=== PATIENT | female | born 1945 | race Hispanic/Latino ===

== ENCOUNTER 2018-06-21 15:58 | Emergency (ER) | payer OTHER ==
[~2018-06-21] VITALS: Ht 160 cm; Wt 77.1 kg
[~2018-06-21 15:58] MED LIST: BUPROPION XL150 MG PO; DESONIDE15 GM TP; DIOVAN HCT 80-1 EACH PO; GLIPIZIDE XL5 MG PO; LINZESS PO; METFORMIN HCL500 MG PO; OMEPRAZOLE20 MG PO; VENTOLIN HFA18 GM INH
--- OUTSIDE RECORDS SUMMARY | 2018-06-21 16:01 | XMS REPORT ---
Author Author [facility] Address Unknown Phone Unavailable Care Team Providers Care Cloth Bin Packer Name Role Phone Unavailable Unavailable Payers Payer Name Policy Type Policy Number Effective Date Expiration Date Problems This patient has no known problems. Allergies, Adverse Reactions, Alerts Allergy Name Allergy Type Status Severity Reaction(s) Onset Date Inactive Date Treating Clinician Comments Penicillins DA Active SV 2014-04-08 00:00:00 lisinopril DA Active SV 2014-04-08 00:00:00 latex DA Active SV 2014-04-08 00:00:00 Medications This patient has no known medications.
--- OUTSIDE RECORDS SUMMARY | 2018-06-21 16:01 | XMS REPORT | Clinical Summary ---
Author Author [facility] Address Unknown Phone Unavailable Care Team Providers Care Receiving Barn Custodian Name Role Phone Asked, No Pcp PCP Unavailable Allergies Comments Active Allergy Reactions Severity Noted Date Latex Rash Low 12/11/2016 cough Lisinopril Other (See 12/11/2016 Comments) Penicillins Rash Low 12/11/2016 Medications End Date Status Medication Sig Dispensed Refills Start Date Active metFORMIN (GLUCOPHAGE) Take 1,000 mg 0 1,000 mg tablet by mouth 2 (two) times a day with meals. Active valsartan-hydrochlorothia Take 1 tablet 0 zide (DIOVAN-HCT) by mouth 160-12.5 mg per tablet daily. Active glipiZIDE (GLUCOTROL) 5 Take 5 mg by 0 MG tablet mouth 2 (two) times a day before meals. Active omeprazole (PriLOSEC) 40 Take 40 mg by 0 MG capsule mouth daily. Active aspirin (ECOTRIN) 81 MG Take 81 mg by 0 enteric coated tablet mouth daily. Active gabapentin (NEURONTIN) Take 400 mg 0 400 mg capsule by mouth nightly. Active metroNIDAZOLE (METROGEL) Apply 0 0.75 % gel topically 2 (two) times a day. Active triamcinolone (KENALOG) Apply 0 0.1 % ointment topically 2 (two) times a day. Active albuterol (PROAIR Inhale 2 0 HFA,PROVENTIL puffs every 6 HFA,VENTOLIN HFA) 90 (six) hours mcg/actuation inhaler as needed for wheezing. Active buPROPion XL (WELLBUTRIN daily. 6 XL) 150 MG 24 hr tablet 7 Active OMEGA-3S/DHA/EPA/FISH OIL Take by 0 (OMEGA 3 ORAL) mouth. Active CYANOCOBALAMIN, VITAMIN Take by 0 B-12, (VITAMIN B-12 ORAL) mouth. Active VITAMIN E, DL,TOCOPHERYL Take by 0 ACET, (VITAMIN E, DL, mouth. ACETATE, ORAL) Active BIOTIN ORAL Take by 0 mouth. Active Problems Problem Noted Date Cystocele, midline 12/24/2016 Midline cystocele 12/23/2016 Social History Date Tobacco Use Types Packs/Day Years Used Current Every Day Smoker Cigarettes 0.25 57 Smokeless Tobacco: Never Used Tobacco Cessation: Ready to Quit: Yes; Counseling Given: Yes Alcohol Use Drinks/Week oz/Week Comments No Sex Assigned at Date Recorded Not on file Industry Job Start Date Occupation Not on file Not on file Not on file Travel End Travel History Travel Start No recent travel history available. Last Filed Vital Signs Not on file Plan of Treatment Not on file Implants Device Identifier Shelf Expiration Date Model / Serial / Lot Implanted Type Area Manufactur er 03/28/2019 [id number] / [id number] / [id number] Matrix Xenform 8x12cm Soft-Tissue Surgical N/A: N/A [facility] [place] Rpr - [id number] Bone UROLOGY Implanted: 12/24/2016 (Quantity not Cement on file) [id number] / / Device Sut Cptrng Capio - [id number] Surgical N/A: N/A [employer] Implanted: 12/24/2016 (Quantity not Implants; SCIENTIFIC on file) Expanders; MARGARET Extenders; Surgical Wires Results Not on fileafter 06/20/2017 Insurance Payer Benefit Subscriber ID Type Phone Address Plan / Group TEXANPLUS TEXANPLUS xxxxxxxxx [facility] MEDICARE AARP xxxxxxxxx HMO MEDICARE COMPLETE [facility] Advance Directives Patient has advance care planning documents on file. For more information, nikki montgomery contact: Henry Arroyo [address] [place] [address]
== END 2018-06-21 19:36 | disposition short-term general hospital (02) ==
LOC: ER 15:58
DX: M54.9 Dorsalgia, unspecified (principal)
CPT/HCPCS: 93005

== ENCOUNTER → 2018-11-08 | Day surgery (SDC) | payer MEDICARE ==
[2018-11-03 10:24] LABS: BASOPHILS % 0.3 % (0.0-1.0); EOSINOPHILS % 0.6 % (0.0-6.0); HEMOGLOBIN 12.2 g/dL (12.0-16.0); LYMPHOCYTES # (AUTO) 1.6 (1.0-3.2); LYMPHOCYTES % 25.7 % (18.0-39.1); MEAN CORPUSCULAR HEMOGLOBIN 28.8 pg (28-32); MEAN CORPUSCULAR VOLUME 87.5 fL (81-99); MONOCYTES # (AUTO) 0.4 (0.2-0.8); MONOCYTES % 6.5 % (4.4-11.3); NEUTROPHILS # (AUTO) 4.2 (2.1-6.9); NEUTROPHILS % 66.6 % (38.7-80.0); PLATELET COUNT 196 x10e3/uL (140-360); RED BLOOD COUNT 4.23 x10e6/uL (3.6-5.1); RED CELL DISTRIBUTION WIDTH 16.2 % (11.7-14.4)
[~2018-11-08] MED LIST changes: +ACETAMINOPHEN/CODEINE 300MG - 30MG TAB ONE; +FENTANYL CITRATE/PF 100MCG/2 ML INJ ONE; +LOVASTATIN40 MG PO; +PROPOFOL IV EMULSION 10 MG/ML 50 ML VIAL ONE
--- OUTSIDE RECORDS SUMMARY | 2018-11-08 06:00 | XMS REPORT | Clinical Summary ---
Author Author [facility] Address Unknown Phone Unavailable Care Team Providers Care Resistance Machine Welder Setter Name Role Phone Asked, No Pcp PCP [...] Lot Implanted Type Area Manufactur er 03/28/2019 [id number] / [id number] / [id number] Matrix Xenform 8x12cm Soft-Tissue Surgical N/A: N/A [facility] [place] Rpr - [id number] Bone UROLOGY Implanted: 12/24/2016 (Quantity not Cement on file) [id number] / / Device Sut Cptrng Capio - [id number] Surgical N/A: N/A [employer] Implanted: 12/24/2016 (Quantity not Implants; SCIENTIFIC on file) Expanders; MARGARET Extenders; Surgical Wires Results Not on fileafter 11/07/2017 Insurance Type Payer Benefit Subscriber ID Effective Phone Address Plan / Dates Group HMO TEXANPLUS TEXANPLUS xxxxxxxxx 2016-P MCR resent HMO [facility] MEDICARE AARP xxxxxxxxx 2016-P MEDICARE resent COMPLETE [facility] Advance Directives Patient has advance care planning documents on file. For more information, nikki montgomery contact: Henry Arroyo [address] [address]
[2018-11-08 09:40] VITALS: BP 139/63
== END | disposition home or self-care (01) ==
LOC: OR 05:51
PROVIDERS: ATTEND Internal Medicine Gastroenterology
DX: K29.50 Unspecified chronic gastritis without bleeding (principal); K20.9 Esophagitis, unspecified; K21.9 Gastro-esophageal reflux disease without esophagitis; K44.9 Diaphragmatic hernia without obstruction or gangrene; K59.00 Constipation, unspecified; E11.9 Type 2 diabetes mellitus without complications; I10 Essential (primary) hypertension; R05 Cough; I11.9 Hypertensive heart disease without heart failure; I77.811 Abdominal aortic ectasia; E78.2 Mixed hyperlipidemia; E66.3 Overweight; I65.23 Occlusion and stenosis of bilateral carotid arteries; I35.9 Nonrheumatic aortic valve disorder, unspecified; F32.9 Major depressive disorder, single episode, unspecified; F41.9 Anxiety disorder, unspecified; Z72.0 Tobacco use; Z88.0 Allergy status to penicillin; Z88.8 Allergy status to other drugs, medicaments and biological substances; Z91.040 Latex allergy status; Z01.812 Encounter for preprocedural laboratory examination; Z79.84 Long term (current) use of oral hypoglycemic drugs; Z79.82 Long term (current) use of aspirin; Z85.3 Personal history of malignant neoplasm of breast; Z80.0 Family history of malignant neoplasm of digestive organs
CPT/HCPCS: 36415 ×2; 43239; 82948; 85025; J2704; J3010

== ENCOUNTER 2020-12-29 10:22 | Emergency (ER) | payer MEDICARE ==
[~2020-12-29] VITALS: Ht 160 cm; Wt 77.1 kg
[~2020-12-29 10:22] MED LIST changes: -ACETAMINOPHEN/CODEINE 300MG - 30MG TAB ONE; -FENTANYL CITRATE/PF 100MCG/2 ML INJ ONE; -PROPOFOL IV EMULSION 10 MG/ML 50 ML VIAL ONE
[2020-12-29] MEDS ORDERED: SODIUM CHLORIDE 0.9% 1000ML 1,000 ML IV STA (10:42)
[2020-12-29] MEDS ORDERED: MORPHINE SULFATE INJ 2 MG/ML SYR IV ONE (11:00)
[2020-12-29] MEDS ORDERED: ONDANSETRON HCL INJ 2MG/ML 2ML 2 MG/ML VIAL IV ONE (11:00)
[2020-12-29 11:02] LABS: BASOPHILS % 0.5 % (0.0-1.0); EOSINOPHILS % 0.3 % (0.0-6.0); HEMATOCRIT 36.1 % (34.2-44.1); HEMOGLOBIN 12.1 g/dL (12.0-16.0); LYMPHOCYTES # (AUTO) 1.8 (1.0-3.2); LYMPHOCYTES % 20.6 % (18.0-39.1); MEAN CORPUSCULAR HEMOGLOBIN 29.4 pg (28-32); MEAN CORPUSCULAR HGB CONC 33.5 g/dL (31-35); MEAN CORPUSCULAR VOLUME 87.6 fL (81-99); MONOCYTES # (AUTO) 0.7 (0.2-0.8); MONOCYTES % 8.6 % (4.4-11.3); NEUTROPHILS % 69.7 % (38.7-80.0); PLATELET COUNT 252 x10e3/uL (140-360); RED BLOOD COUNT 4.12 x10e6/uL (3.6-5.1); RED CELL DISTRIBUTION WIDTH 15.9 % (11.7-14.4)
[2020-12-29 11:24] LABS: ALANINE AMINOTRANSFERASE 11 IU/L (0-55); ALBUMIN 3.9 g/dL (3.5-5.0); ALBUMIN/GLOBULIN RATIO 1.1 (0.8-2.0); ALKALINE PHOSPHATASE 63 IU/L (40-150); ANION GAP 16.1 mmol/L (8-16); BLOOD UREA NITROGEN 17 mg/dL (7-26); BUN/CREATININE RATIO 15 (6-25); CALCIUM 9.7 mg/dL (8.4-10.2); CARBON DIOXIDE 25 mmol/L (22-29); CHLORIDE 93 mmol/L (98-107); CREATINE KINASE 71 IU/L (29-168); CREATININE, SERUM 1.12 mg/dL (0.57-1.11); EST GLOMERULAR FILTRATION RATE 47 ML/MIN (60-); GLUCOSE 118 mg/dL (74-118); LIPASE 48 U/L (8-78); MAGNESIUM 1.7 MG/DL (1.3-2.1); POTASSIUM 4.1 mmol/L (3.5-5.1); SODIUM 130 mmol/L (136-145)
[2020-12-29 11:26] LABS: INR 0.9; PARTIAL THROMBOPLASTIN TIME 22.9 seconds (23.8-35.5); PROTHROMBIN TIME 12.3 seconds (11.9-14.5)
[2020-12-29] MEDS ORDERED: SODIUM CHLORIDE 0.9% 50ML 50 ML ONE (11:46)
[2020-12-29] MEDS ORDERED: IOPAMIDOL 370 MG/ML 200 ML INFUS..BTL INJ ONE (11:46)
[2020-12-29 13:12] LABS: BACTERIA,URINE FEW /HPF; CLARITY,URINE CLEAR (CLEAR); COLOR,URINE YELLOW (YELLOW); EPITHELIAL CELLS,URINE MODERATE /LPF; KETONES,URINE NEGATIVE (NEGATIVE); LEUKOCYTE ESTERASE ,URINE NEGATIVE (NEGATIVE); NITRITE,URINE NEGATIVE (NEGATIVE); PROTEIN,URINE DIPSTICK 2+ (NEGATIVE); RBC,URINE 0-5 /HPF (0-5); URINE UROBILINOGEN 0.2 mg/dL (0.2 - 1); WBC,URINE (MAN) 0-5 /HPF (0-5)
== END 2020-12-29 13:42 | disposition home or self-care (01) ==
LOC: ER 10:30
DX: M54.41 Lumbago with sciatica, right side (principal); I77.811 Abdominal aortic ectasia; R10.31 Right lower quadrant pain; E11.9 Type 2 diabetes mellitus without complications; I10 Essential (primary) hypertension; Z85.3 Personal history of malignant neoplasm of breast
CPT/HCPCS: 36415; 74177; 80053; 81001; 82550; 82553; 83690; 83735; 84484; 85025; 85610; 85730; 87086; 93005; 99283; C9113; J2270; J2405; J7030; Q9967

== ENCOUNTER 2021-11-28 12:27 | Emergency (ER) | payer MEDICARE ==
[~2021-11-28] VITALS: Ht 160 cm; Wt 77.1 kg
[2021-11-28] MEDS ORDERED: DONNATAL/LIDOCAINE/MAALOX 30 ML SUSP PO SCH (13:15)
[2021-11-28 13:53] LABS: BASOPHILS % 0.3 % (0.0-1.0); EOSINOPHILS % 0.4 % (0.0-6.0); HEMATOCRIT 31.6 % (34.2-44.1); LYMPHOCYTES # (AUTO) 1.5 (1.0-3.2); LYMPHOCYTES % 21.6 % (18.0-39.1); MEAN CORPUSCULAR HEMOGLOBIN 28.7 pg (28-32); MEAN CORPUSCULAR HGB CONC 34.8 g/dL (31-35); MEAN CORPUSCULAR VOLUME 82.5 fL (81-99); MONOCYTES # (AUTO) 0.5 (0.2-0.8); MONOCYTES % 6.4 % (4.4-11.3); PLATELET COUNT 232 x10e3/uL (140-360); RED BLOOD COUNT 3.83 x10e6/uL (3.6-5.1); RED CELL DISTRIBUTION WIDTH 17.2 % (11.7-14.4)
[2021-11-28 14:12] LABS: ALBUMIN 3.3 g/dL (3.5-5.0); ALBUMIN/GLOBULIN RATIO 0.9 (0.8-2.0); ANION GAP 13.8 mmol/L (8-16); CALCIUM 9.4 mg/dL (8.4-10.2); CREATININE, SERUM 1.17 mg/dL (0.57-1.11); POTASSIUM 3.8 mmol/L (3.5-5.1)
[2021-11-28 14:19] LABS: CREATINE KINASE MB 0.7 ng/mL (0-5.0)
[2021-11-28] MEDS ORDERED: LACTATED RINGER'S 1,000 ML IV ONE (14:30)
[2021-11-28] MEDS ORDERED: IOPAMIDOL 370 MG/ML 100 ML INFUS..BTL INJ ONE (15:01)
[2021-11-28 17:35] VITALS: BP 140/89
== END 2021-11-28 17:39 | disposition home or self-care (01) ==
LOC: ER 12:41
DX: R10.13 Epigastric pain (principal); E11.65 Type 2 diabetes mellitus with hyperglycemia; I10 Essential (primary) hypertension; Z85.3 Personal history of malignant neoplasm of breast
CPT/HCPCS: 36415; 71045; 71260; 74177; 80053; 82550; 82553; 84484; 85025; 93005; 99284; J7121; Q9967

== ENCOUNTER 2022-01-05 13:36 | Emergency (ER) | payer MEDICARE, OTHER ==
[~2022-01-05] VITALS: Ht 160 cm; Wt 77.1 kg
[2022-01-05] MEDS ORDERED: HYDROCODONE/APAP 5MG-325MG TAB PO ONE (14:00)
[2022-01-05] MEDS ORDERED: CELEBREX100 MG PO (15:02)
== END 2022-01-05 15:16 | disposition home or self-care (01) ==
LOC: ER 13:41
DX: M25.511 Pain in right shoulder (principal); S40.011A Contusion of right shoulder, initial encounter; W01.0XXA Fall on same level from slipping, tripping and stumbling without subsequent striking against object, initial encounter; Y93.01 Activity, walking, marching and hiking; Y92.89 Other specified places as the place of occurrence of the external cause; I10 Essential (primary) hypertension; E11.9 Type 2 diabetes mellitus without complications; K21.9 Gastro-esophageal reflux disease without esophagitis; Z85.3 Personal history of malignant neoplasm of breast
CPT/HCPCS: 99283

== ENCOUNTER → 2022-01-13 | Outpatient (CLI) | payer MEDICARE ==
[~2022-01-13] MED LIST changes: +CELEBREX100 MG PO
== END ==
LOC: RAD 09:56
PROVIDERS: ATTEND Specialist
DX: M54.2 Cervicalgia (principal)
CPT/HCPCS: 72040

== ENCOUNTER → 2022-02-24 | Day surgery (SDC) | payer MEDICARE ==
[~2022-02-24] MED LIST changes: +CRESTOR40 MG PO; +DIOVAN80 MG PO; +FERROUS SU15 MG/1 ML PO; +LIDOCAINE HCL 2% LOCAL INJ 5 ML SDV VIAL INJ ONE; +PROPOFOL IV EMULSION 10 MG/ML 20 ML VIAL ONE; +PROTONIX20 MG PO; +XARELTO10 MG PO
[2022-02-24 14:24] LABS: BASOPHILS % 0.6 % (0.0-1.0); EOSINOPHILS % 0.3 % (0.0-6.0); HEMATOCRIT 37.5 % (34.2-44.1); HEMOGLOBIN 11.3 g/dL (12.0-16.0); LYMPHOCYTES # (AUTO) 1.4 (1.0-3.2); LYMPHOCYTES % 20.3 % (18.0-39.1); MEAN CORPUSCULAR HEMOGLOBIN 28.5 pg (28-32); MEAN CORPUSCULAR HGB CONC 30.1 g/dL (31-35); MEAN CORPUSCULAR VOLUME 94.5 fL (81-99); MONOCYTES # (AUTO) 0.5 (0.2-0.8); MONOCYTES % 6.9 % (4.4-11.3); NEUTROPHILS # (AUTO) 5.1 (2.1-6.9); NEUTROPHILS % 71.5 % (38.7-80.0); PLATELET COUNT 279 x10e3/uL (140-360); RED BLOOD COUNT 3.97 x10e6/uL (3.6-5.1); RED CELL DISTRIBUTION WIDTH 17.2 % (11.7-14.4)
[2022-02-24 15:30] VITALS: BP 128/54
== END | disposition home or self-care (01) ==
LOC: ENDO 13:43
PROVIDERS: ATTEND Internal Medicine Gastroenterology
DX: R93.89 Abnormal findings on diagnostic imaging of other specified body structures (principal); D12.4 Benign neoplasm of descending colon; K64.8 Other hemorrhoids; K52.9 Noninfective gastroenteritis and colitis, unspecified; K44.9 Diaphragmatic hernia without obstruction or gangrene; K29.70 Gastritis, unspecified, without bleeding; R13.10 Dysphagia, unspecified; A04.8 Other specified bacterial intestinal infections; R63.4 Abnormal weight loss; D64.9 Anemia, unspecified; R80.9 Proteinuria, unspecified; R74.8 Abnormal levels of other serum enzymes; J44.9 Chronic obstructive pulmonary disease, unspecified; E11.22 Type 2 diabetes mellitus with diabetic chronic kidney disease; I12.9 Hypertensive chronic kidney disease with stage 1 through stage 4 chronic kidney disease, or unspecified chronic kidney disease; N18.9 Chronic kidney disease, unspecified; I25.10 Atherosclerotic heart disease of native coronary artery without angina pectoris; E78.5 Hyperlipidemia, unspecified; H35.30 Unspecified macular degeneration; F17.210 Nicotine dependence, cigarettes, uncomplicated; Z88.0 Allergy status to penicillin; Z88.8 Allergy status to other drugs, medicaments and biological substances; Z91.040 Latex allergy status; Z01.810 Encounter for preprocedural cardiovascular examination; Z79.84 Long term (current) use of oral hypoglycemic drugs; Z79.02 Long term (current) use of antithrombotics/antiplatelets; Z79.899 Other long term (current) drug therapy; Z86.73 Personal history of transient ischemic attack (TIA), and cerebral infarction without residual deficits; Z80.0 Family history of malignant neoplasm of digestive organs
CPT/HCPCS: 36415; 45333; 82948; 85025; 93005; J2001; J2704; 45330